=== PATIENT | female | born 2000 | race Hispanic/Latino ===

== ENCOUNTER 2020-05-11 14:13 | Inpatient (IN) | payer BC ==
[~2020-05-11] VITALS: Ht 160 cm; Wt 57.2 kg
[2020-05-11] MEDS ORDERED: SODIUM CHLORIDE 0.9% 1000ML 1,000 ML IV STA ×4 (14:54→18:16)
[2020-05-11] MEDS ORDERED: ACETAMINOPHEN 325 MG TAB PO NR (15:00)
[2020-05-11 15:26] LABS: HEMATOCRIT 28.5 % (34.2-44.1); HEMOGLOBIN 8.9 g/dL (12.0-16.0); LYMPHOCYTES % 42.1 % (18.0-39.1); MEAN CORPUSCULAR HEMOGLOBIN 25.4 pg (28-32); MEAN CORPUSCULAR HGB CONC 31.2 g/dL (31-35); MEAN CORPUSCULAR VOLUME 81.2 fL (81-99); MONOCYTES # (AUTO) 0.1 (0.2-0.8); MONOCYTES % 3.8 % (4.4-11.3); NEUTROPHILS # (AUTO) 1.3 (2.1-6.9); NEUTROPHILS % 53.7 % (38.7-80.0); PLATELET COUNT 81 x10e3/uL (140-360); RED BLOOD COUNT 3.51 x10e6/uL (3.6-5.1); RED CELL DISTRIBUTION WIDTH 16.2 % (11.7-14.4)
[2020-05-11 15:37] LABS: INR 1.38; PROTHROMBIN TIME 17.7 seconds (11.9-14.5)
[2020-05-11 15:38] LABS: PARTIAL THROMBOPLASTIN TIME 51.9 seconds (23.8-35.5)
[2020-05-11 15:48] LABS: ALANINE AMINOTRANSFERASE 55 IU/L (0-55); ALBUMIN 2.3 g/dL (3.5-5.0); ALBUMIN/GLOBULIN RATIO 0.5 (0.8-2.0); ALKALINE PHOSPHATASE 22 IU/L (40-150); ANION GAP 13.3 mmol/L (8-16); BLOOD UREA NITROGEN 39 mg/dL (7-26); BUN/CREATININE RATIO 24 (6-25); CALCIUM 7.1 mg/dL (8.4-10.2); CARBON DIOXIDE 19 mmol/L (22-29); CHLORIDE 102 mmol/L (98-107); EST GLOMERULAR FILTRATION RATE 41 ML/MIN (60-); GLUCOSE 95 mg/dL (74-118); MAGNESIUM 2.8 MG/DL (1.3-2.1); POTASSIUM 5.3 mmol/L (3.5-5.1); SODIUM 129 mmol/L (136-145)
[2020-05-11] MEDS ORDERED: VANCOMYCIN 1GM/NS 250 ML 250 ML IV ONE (16:00)
[2020-05-11] MEDS: CEFEPIME 2 GM/NS 0.9% 100 ML 100 ML IV SCH (16:49)
[2020-05-11 16:57] LABS: BILIRUBIN,URINE NEGATIVE (NEGATIVE); CLARITY,URINE SL CLOUDY (CLEAR); COLOR,URINE STRAW (YELLOW); KETONES,URINE NEGATIVE (NEGATIVE); LEUKOCYTE ESTERASE ,URINE NEGATIVE (NEGATIVE); NITRITE,URINE NEGATIVE (NEGATIVE); PROTEIN,URINE DIPSTICK >=300 (NEGATIVE); URINE UROBILINOGEN 0.2 mg/dL (0.2 - 1)
[2020-05-11 17:07] LABS: AMORPHOUS SEDIMENT,URINE MANY (FEW); BACTERIA,URINE MODERATE /HPF
[2020-05-11] MEDS ORDERED: ONDANSETRON HCL INJ 2MG/ML 2ML 2 MG/ML VIAL IV NR (17:30)
[2020-05-11 17:33] LABS: FREE THYROXINE INDEX 1.6914 (1.4-3.8); THYROID STIMULATING HORMONE 1.735 uIU/mL (0.350-4.940)
[2020-05-11 17:47] LABS: STREPTOCOCCUS GRP A ANTIGEN NEGATIVE (NEGATIVE)
[2020-05-11 17:56] LABS: INFLUENZAE A&B ANTIGEN (RAPID) NEGATIVE (NEGATIVE)
[2020-05-11] MEDS ORDERED: LIDOCAINE HCL 1% LOCAL INJ 20 ML VIAL INJ ONE (18:00)
[2020-05-11] MEDS ORDERED: SODIUM CHLORIDE 0.9% 1000ML 1,000 ML ONE (18:03)
[2020-05-11] MEDS: SODIUM CHLORIDE 0.9% 1000ML 1,000 ML IV SCH (18:33)
[2020-05-11] MEDS ORDERED: SODIUM CHLORIDE 0.9% 250ML 250 ML IV ONE (19:30)
[2020-05-11 19:54] LABS: ELLIPTOCYTE, RBC SLIGHT; TEAR DROP CELLS FEW
[2020-05-11 19:56] LABS: PLATELET MORPHOLOGY COMMENT RARE EDTA CLUMPING; POIKILOCYTOSIS SLIGHT; RBC MORPHOLOGY COMMENT ABNORMAL
[2020-05-11 19:57] LABS: PLATELET ESTIMATE SLIGHTLY DECREASED
[2020-05-11 20:30] VITALS: BP 98/59
[2020-05-11 21:00] VITALS: BP 84/58
[2020-05-11 21:11] LABS: FERRITIN 1805.57 ng/mL (4.63-204.00)
[2020-05-11 22:00] VITALS: BP 85/54
[2020-05-11] MEDS ORDERED: INFLUENZA VIRUS VAC SPLIT INJ 0.5 ML SYR IM SCH (22:06)
[2020-05-11] MEDS ORDERED: SODIUM CHLORIDE 0.9% 250ML 250 ML ONE (22:35)
[2020-05-11 22:44] LABS: CREATINE KINASE 1046 IU/L (29-168)
[2020-05-11 22:52] LABS: CREATINE KINASE MB < 1.00 ng/mL (0-4.3)
[2020-05-11 23:00] VITALS: BP 82/58
[2020-05-11 23:22] LABS: AMPHETAMINES SCREEN,URINE NEGATIVE (NEGATIVE); BENZODIAZEPINES SCREEN,URINE NEGATIVE (NEGATIVE); PHENCYCLIDINE SCREEN,URINE NEGATIVE (NEGATIVE)
[2020-05-11] MEDS: ONDANSETRON HCL INJ 2MG/ML 2ML 2 MG/ML VIAL IV PRN (23:26)
[2020-05-11 23:31] LABS: AMYLASE 220 U/L (25-125); LIPASE 271 U/L (8-78)
[2020-05-12] VITALS (24 sets, daily range): BP systolic 87–108; BP diastolic 55–79
[2020-05-12] MEDS ORDERED: METOPROLOL TARTRATE INJ 1 MG/ML VIAL IV PRN (00:15)
[2020-05-12 02:42] LABS: CREATINE KINASE MB 2.5 ng/mL (0-5.0)
[2020-05-12 02:48] LABS: HIV 1&2 AB SCREEN NON-REACTIVE (NONREACTIVE)
[2020-05-12] MEDS: SODIUM CHLORIDE 0.9% 1000ML 1,000 ML IV SCH ×2 (03:25→09:40)
[2020-05-12] MEDS ORDERED: DIATRIZOATE MEGL/DIATRIZOA SOD 30 ML BTL PO ONE (04:27)
[2020-05-12 05:40] LABS: HEMATOCRIT 28.7 % (34.2-44.1); HEMOGLOBIN 9.3 g/dL (12.0-16.0); LYMPHOCYTES # (AUTO) 0.5 (1.0-3.2); LYMPHOCYTES % 30.4 % (18.0-39.1); MEAN CORPUSCULAR HEMOGLOBIN 27.2 pg (28-32); MEAN CORPUSCULAR HGB CONC 32.4 g/dL (31-35); MEAN CORPUSCULAR VOLUME 83.9 fL (81-99); MONOCYTES # (AUTO) 0.1 (0.2-0.8); MONOCYTES % 4.1 % (4.4-11.3); NEUTROPHILS # (AUTO) 1.1 (2.1-6.9); NEUTROPHILS % 64.9 % (38.7-80.0); PLATELET COUNT 54 x10e3/uL (140-360); RED BLOOD COUNT 3.42 x10e6/uL (3.6-5.1); RED CELL DISTRIBUTION WIDTH 15.6 % (11.7-14.4)
[2020-05-12 06:14] LABS: ALANINE AMINOTRANSFERASE 44 IU/L (0-55); ALBUMIN 1.6 g/dL (3.5-5.0); ALBUMIN/GLOBULIN RATIO 0.4 (0.8-2.0); ALKALINE PHOSPHATASE 17 IU/L (40-150); ANION GAP 10.4 mmol/L (8-16); BLOOD UREA NITROGEN 29 mg/dL (7-26); BUN/CREATININE RATIO 32 (6-25); CARBON DIOXIDE 16 mmol/L (22-29); CHLORIDE 114 mmol/L (98-107); CREATININE, SERUM 0.92 mg/dL (0.57-1.11); EST GLOMERULAR FILTRATION RATE > 60 ML/MIN (60-); GLUCOSE 81 mg/dL (74-118); POTASSIUM 4.4 mmol/L (3.5-5.1); SODIUM 136 mmol/L (136-145)
[2020-05-12 06:18] LABS: CALCIUM 5.7 mg/dL (8.4-10.2)
[2020-05-12 07:05] LABS: BAND NEUTROPHILS % (MANUAL) 3 %; LYMPHOCYTES % (MANUAL) 31 % (19-48); MONOCYTES % (MANUAL) 5 % (3.4-9.0); NEUTROPHILS % (MANUAL) 61 % (40-74); SCHISTOCYTES FEW; TEAR DROP CELLS FEW
[2020-05-12 07:06] LABS: ANISOCYTOSIS MODERATE; POLYCHROMASIA FEW
[2020-05-12 07:07] LABS: ELLIPTOCYTE, RBC FEW; PLATELET ESTIMATE MODERATELY DECREASED; PLATELET MORPHOLOGY COMMENT FEW EDTA CLUMPING
[2020-05-12] MEDS: CEFEPIME 2 GM/NS 0.9% 100 ML 100 ML IV SCH ×2 (07:18→16:46)
[2020-05-12 07:57] LABS: CHOLESTEROL 50 MD/DL (0-199); MAGNESIUM 2.1 MG/DL (1.3-2.1); PHOSPHORUS 3.2 MG/DL (2.3-4.7); TRIGLYCERIDES 277 MG/DL (0-149)
[2020-05-12 07:59] LABS: HDL CHOLESTEROL < 5 MG/DL (40-60)
[2020-05-12] MEDS ORDERED: CALCIUM GLUCONATE 10% INJ 9.3 MEQ in SODIUM CHLORIDE 0.9% 100 ML 100 ML IV ONE (08:00)
[2020-05-12] MEDS: ONDANSETRON HCL INJ 2MG/ML 2ML 2 MG/ML VIAL IV PRN (08:40)
[2020-05-12 10:36] LABS: CREATINE KINASE MB 3.3 ng/mL (0-5.0)
[2020-05-12] MEDS ORDERED: LACTATED RINGER'S 1,000 ML INJ ONE (11:30)
[2020-05-12] MEDS: ACETAMINOPHEN 325 MG TAB PO PRN ×2 (11:50→19:50)
[2020-05-12 12:03] LABS: RBC MORPHOLOGY COMMENT ABNORMAL
[2020-05-12] MEDS ORDERED: FENTANYL CITRATE/PF 100MCG/2 ML INJ ONE (13:33)
[2020-05-12] MEDS ORDERED: MIDAZOLAM HCL 2 MG/2 ML VIAL ONE (13:33)
[2020-05-12] MEDS ORDERED: TRAMADOL HCL 50 MG TAB PO PRN (21:15)
[2020-05-12] MEDS: ACETAMINOPHEN/CODEINE 300MG - 30MG TAB PO PRN (21:34)
[2020-05-13] VITALS (10 sets, daily range): BP systolic 84–96; BP diastolic 47–65
[2020-05-13] MEDS ORDERED: METOCLOPRAMIDE HCL 10 MG/2ML VIAL IV STA (01:55)
[2020-05-13] MEDS: PANTOPRAZOLE 40 MG 10ML VIAL IV SCH ×3 (02:14→21:14)
[2020-05-13] MEDS: CEFEPIME 2 GM/NS 0.9% 100 ML 100 ML IV SCH ×3 (04:21→23:07)
[2020-05-13 05:08] LABS: HEMATOCRIT 30.9 % (34.2-44.1); HEMOGLOBIN 9.8 g/dL (12.0-16.0); LYMPHOCYTES # (AUTO) 0.5 (1.0-3.2); LYMPHOCYTES % 31.5 % (18.0-39.1); MEAN CORPUSCULAR HEMOGLOBIN 26.3 pg (28-32); MEAN CORPUSCULAR HGB CONC 31.7 g/dL (31-35); MEAN CORPUSCULAR VOLUME 83.1 fL (81-99); MONOCYTES # (AUTO) 0.1 (0.2-0.8); NEUTROPHILS # (AUTO) 0.9 (2.1-6.9); NEUTROPHILS % 60.8 % (38.7-80.0); RED BLOOD COUNT 3.72 x10e6/uL (3.6-5.1); RED CELL DISTRIBUTION WIDTH 16.3 % (11.7-14.4)
[2020-05-13] MEDS: METOCLOPRAMIDE HCL 10 MG/2ML VIAL IV SCH ×4 (05:46→23:07)
[2020-05-13 05:50] LABS: ALANINE AMINOTRANSFERASE 117 IU/L (0-55); ALBUMIN 1.7 g/dL (3.5-5.0); ALBUMIN/GLOBULIN RATIO 0.4 (0.8-2.0); ALKALINE PHOSPHATASE 25 IU/L (40-150); BLOOD UREA NITROGEN 20 mg/dL (7-26); BUN/CREATININE RATIO 24 (6-25); CARBON DIOXIDE 16 mmol/L (22-29); CHLORIDE 115 mmol/L (98-107); CREATININE, SERUM 0.84 mg/dL (0.57-1.11); EST GLOMERULAR FILTRATION RATE > 60 ML/MIN (60-); GLUCOSE 80 mg/dL (74-118); MAGNESIUM 2.3 MG/DL (1.3-2.1); PHOSPHORUS 3.7 MG/DL (2.3-4.7); SODIUM 137 mmol/L (136-145)
[2020-05-13 05:53] LABS: CALCIUM 6.8 mg/dL (8.4-10.2)
[2020-05-13 07:43] LABS: BAND NEUTROPHILS % (MANUAL) 1 %; LYMPHOCYTES % (MANUAL) 17 % (19-48); MONOCYTES % (MANUAL) 3 % (3.4-9.0); NEUTROPHILS % (MANUAL) 79 % (40-74)
[2020-05-13 07:44] LABS: ANISOCYTOSIS SLIGHT; ELLIPTOCYTE, RBC SLIGHT; TEAR DROP CELLS FEW
[2020-05-13 07:45] LABS: HELMET CELLS RARE
[2020-05-13 07:46] LABS: OVALOCYTES FEW; RBC MORPHOLOGY COMMENT ABNORMAL; SCHISTOCYTES RARE
[2020-05-13 07:53] LABS: PLATELET ESTIMATE MODERATELY DECREASED; PLATELET MORPHOLOGY COMMENT FEW EDTA CLUMPING
[2020-05-13 07:54] LABS: PLATELET COUNT 71 x10e3/uL (140-360)
[2020-05-13] MEDS ORDERED: FILGRASTIM 480 MCG SYR SQ ONE (09:45)
[2020-05-13] MEDS: HYDROCODONE/APAP 7.5MG-325MG 1 EA TAB PO PRN (10:25)
[2020-05-13] MEDS: IRON SUCROSE 100 MG in SODIUM CHLORIDE 0.9% 100 ML 100 ML IV SCH (10:45)
[2020-05-13] MEDS: DICYCLOMINE HCL 10 MG CAP PO SCH ×3 (10:47→21:14)
[2020-05-13 12:09] LABS: BILIRUBIN,URINE SMALL (NEGATIVE); CLARITY,URINE SL CLOUDY (CLEAR); COLOR,URINE YELLOW (YELLOW); KETONES,URINE TRACE (NEGATIVE); LEUKOCYTE ESTERASE ,URINE NEGATIVE (NEGATIVE); NITRITE,URINE NEGATIVE (NEGATIVE); PROTEIN,URINE DIPSTICK >=300 (NEGATIVE); URINE UROBILINOGEN 1 mg/dL (0.2 - 1)
[2020-05-13 12:21] LABS: WBC,URINE (MAN) 0-5 /HPF (0-5)
[2020-05-13 12:22] LABS: BACTERIA,URINE RARE /HPF; EPITHELIAL CELLS,URINE RARE /LPF; HYALINE CASTS 0-1 (0-1); MUCUS,URINE RARE (RARE)
[2020-05-13] MEDS: SODIUM BICARBONATE 8.4% SYRING 150 ML in DEXTROSE 5% 1,000 ML IV SCH (13:15)
[2020-05-13] MEDS: ACETAMINOPHEN/CODEINE 300MG - 30MG TAB PO PRN (19:13)
[2020-05-14] VITALS (8 sets, daily range): BP systolic 93–102; BP diastolic 50–65
[2020-05-14 02:27] LABS: CREATININE,URINE RANDOM 105.12 mg/dL (47-110)
[2020-05-14] MEDS: ACETAMINOPHEN/CODEINE 300MG - 30MG TAB PO PRN ×2 (02:32→17:33)
[2020-05-14 02:51] LABS: TOTAL PROTEIN 24HR, URINE 3232.5 mg/24hr (50-100)
[2020-05-14] MEDS: METOCLOPRAMIDE HCL 10 MG/2ML VIAL IV SCH ×3 (05:17→17:33)
[2020-05-14 06:16] LABS: BASOPHILS % 0.1 % (0.0-1.0); HEMATOCRIT 29.2 % (34.2-44.1); HEMOGLOBIN 9.3 g/dL (12.0-16.0); LYMPHOCYTES # (AUTO) 0.9 (1.0-3.2); LYMPHOCYTES % 13.2 % (18.0-39.1); MEAN CORPUSCULAR HEMOGLOBIN 26.5 pg (28-32); MEAN CORPUSCULAR HGB CONC 31.8 g/dL (31-35); MEAN CORPUSCULAR VOLUME 83.2 fL (81-99); MONOCYTES # (AUTO) 0.1 (0.2-0.8); MONOCYTES % 1.5 % (4.4-11.3); NEUTROPHILS # (AUTO) 5.7 (2.1-6.9); PLATELET COUNT 51 x10e3/uL (140-360); RED BLOOD COUNT 3.51 x10e6/uL (3.6-5.1); RED CELL DISTRIBUTION WIDTH 17.1 % (11.7-14.4)
[2020-05-14 06:58] LABS: ANION GAP 8.5 mmol/L (8-16); BLOOD UREA NITROGEN 15 mg/dL (7-26); BUN/CREATININE RATIO 18 (6-25); CARBON DIOXIDE 21 mmol/L (22-29); CHLORIDE 111 mmol/L (98-107); CREATININE, SERUM 0.82 mg/dL (0.57-1.11); EST GLOMERULAR FILTRATION RATE > 60 ML/MIN (60-); GLUCOSE 82 mg/dL (74-118); POTASSIUM 4.5 mmol/L (3.5-5.1); SODIUM 136 mmol/L (136-145)
[2020-05-14 07:03] LABS: CALCIUM 6.8 mg/dL (8.4-10.2)
[2020-05-14] MEDS: DICYCLOMINE HCL 10 MG CAP PO SCH ×3 (08:24→21:08)
[2020-05-14] MEDS: SODIUM BICARBONATE 8.4% SYRING 150 ML in DEXTROSE 5% 1,000 ML IV SCH (08:24)
[2020-05-14] MEDS: PANTOPRAZOLE 40 MG 10ML VIAL IV SCH ×2 (08:24→21:08)
[2020-05-14] MEDS: CEFEPIME 2 GM/NS 0.9% 100 ML 100 ML IV SCH ×2 (08:24→17:10)
[2020-05-14] MEDS: IRON SUCROSE 100 MG in SODIUM CHLORIDE 0.9% 100 ML 100 ML IV SCH (08:24)
[2020-05-14 08:31] LABS: PLATELET ESTIMATE MARKEDLY DECREASED; PLATELET MORPHOLOGY COMMENT FEW EDTA CLUMPING
[2020-05-14] MEDS: HYDROCODONE/APAP 7.5MG-325MG 1 EA TAB PO PRN (08:33)
[2020-05-14] MEDS ORDERED: METHYLPREDNISOLONE SOD SUCC 125 MG/2ML VIAL IV ONE (17:30)
[2020-05-15] VITALS (8 sets, daily range): BP systolic 99–120; BP diastolic 60–84
[2020-05-15] MEDS: METHYLPREDNISOLONE SOD SUCC 125 MG/2ML VIAL IV SCH ×4 (01:00→23:45)
[2020-05-15] MEDS: METOCLOPRAMIDE HCL 10 MG/2ML VIAL IV SCH ×5 (06:33→23:45)
[2020-05-15] MEDS: SODIUM BICARBONATE 8.4% SYRING 150 ML in DEXTROSE 5% 1,000 ML IV SCH ×2 (10:59→20:18)
[2020-05-15] MEDS: DICYCLOMINE HCL 10 MG CAP PO SCH ×3 (11:00→20:18)
[2020-05-15] MEDS: CEFEPIME 2 GM/NS 0.9% 100 ML 100 ML IV SCH ×4 (11:00→20:18)
[2020-05-15] MEDS: IRON SUCROSE 100 MG in SODIUM CHLORIDE 0.9% 100 ML 100 ML IV SCH (11:00)
[2020-05-15] MEDS: PANTOPRAZOLE 40 MG 10ML VIAL IV SCH ×2 (11:00→20:18)
[2020-05-15] MEDS ORDERED: GADOBENATE DIMEGLUMINE 1 ML IV ONE (11:53)
[2020-05-15] MEDS ORDERED: CALCIUM GLUCONATE 10% INJ 9.3 MEQ in SODIUM CHLORIDE 0.9% 100 ML 100 ML IV ONE (12:30)
[2020-05-15] MEDS: HYDROCODONE/APAP 7.5MG-325MG 1 EA TAB PO PRN (23:45)
[2020-05-15] MEDS ORDERED: LACTATED RINGER'S 1,000 ML ONE (23:59)
[2020-05-16] VITALS (9 sets, daily range): BP systolic 108–125; BP diastolic 75–88
[2020-05-16] MEDS ORDERED: CITRATE OF MAGNESIA 300ML BOTTLE PO ONE (01:15)
[2020-05-16] MEDS ORDERED: ONDANSETRON HCL INJ 2MG/ML 2ML 2 MG/ML VIAL IV ONE (01:15)
[2020-05-16] MEDS ORDERED: ONDANSETRON HCL INJ 2MG/ML 2ML 2 MG/ML VIAL IV PRN (02:00)
[2020-05-16] MEDS: METOCLOPRAMIDE HCL 10 MG/2ML VIAL IV SCH ×5 (02:00→20:18)
[2020-05-16 02:37] LABS: BASOPHILS % 0.2 % (0.0-1.0); HEMOGLOBIN 9.2 g/dL (12.0-16.0); LYMPHOCYTES % 16.6 % (18.0-39.1); MEAN CORPUSCULAR HEMOGLOBIN 26.4 pg (28-32); MEAN CORPUSCULAR HGB CONC 31.7 g/dL (31-35); MEAN CORPUSCULAR VOLUME 83.3 fL (81-99); MONOCYTES # (AUTO) 0.3 (0.2-0.8); MONOCYTES % 5.5 % (4.4-11.3); NEUTROPHILS # (AUTO) 4.7 (2.1-6.9); NEUTROPHILS % 76.3 % (38.7-80.0); RED BLOOD COUNT 3.48 x10e6/uL (3.6-5.1); RED CELL DISTRIBUTION WIDTH 17.2 % (11.7-14.4)
[2020-05-16 02:48] LABS: CALCIUM IONIZED 1.2 mmol/L (1.09-1.30)
[2020-05-16 02:50] LABS: PLATELET COUNT 48 x10e3/uL (140-360)
[2020-05-16 02:52] LABS: PHOSPHORUS 2.9 MG/DL (2.3-4.7)
[2020-05-16 02:54] LABS: ALANINE AMINOTRANSFERASE 269 IU/L (0-55); ALBUMIN 1.4 g/dL (3.5-5.0); ALBUMIN/GLOBULIN RATIO 0.4 (0.8-2.0); ALKALINE PHOSPHATASE 60 IU/L (40-150); ANION GAP 8.2 mmol/L (8-16); BLOOD UREA NITROGEN 22 mg/dL (7-26); BUN/CREATININE RATIO 36 (6-25); CALCIUM 7.1 mg/dL (8.4-10.2); CARBON DIOXIDE 28 mmol/L (22-29); CHLORIDE 104 mmol/L (98-107); CREATININE, SERUM 0.61 mg/dL (0.57-1.11); EST GLOMERULAR FILTRATION RATE > 60 ML/MIN (60-); GLUCOSE 161 mg/dL (74-118); POTASSIUM 4.2 mmol/L (3.5-5.1); SODIUM 136 mmol/L (136-145)
[2020-05-16] MEDS ORDERED: HYOSCYAMINE 0.125 MG TAB PO ONE (03:30)
[2020-05-16] MEDS ORDERED: HYOSCYAMINE 0.125 MG TAB PO PRN (03:30)
[2020-05-16 04:25] LABS: AMYLASE 134 U/L (25-125); LIPASE 206 U/L (8-78)
[2020-05-16] MEDS: SODIUM BICARBONATE 8.4% SYRING 150 ML in DEXTROSE 5% 1,000 ML IV SCH ×2 (04:49→21:04)
[2020-05-16] MEDS ORDERED: CHLORDIAZEPOXIDE/CLIDINIUM 1 CAP PO STA (05:31)
[2020-05-16] MEDS ORDERED: BISACODYL 10 MG SUPP PR PRN (05:45)
[2020-05-16 05:54] LABS: CLARITY,URINE SL CLOUDY (CLEAR); COLOR,URINE YELLOW (YELLOW); LEUKOCYTE ESTERASE ,URINE NEGATIVE (NEGATIVE); NITRITE,URINE NEGATIVE (NEGATIVE)
[2020-05-16 05:55] LABS: BILIRUBIN,URINE SMALL (NEGATIVE); KETONES,URINE NEGATIVE (NEGATIVE); PROTEIN,URINE DIPSTICK >=300 (NEGATIVE); URINE UROBILINOGEN 1 mg/dL (0.2 - 1)
[2020-05-16 06:37] LABS: BACTERIA,URINE RARE /HPF; EPITHELIAL CELLS,URINE FEW /LPF; WBC,URINE (MAN) 21-50 /HPF (0-5)
[2020-05-16] MEDS: DICYCLOMINE HCL 10 MG CAP PO SCH ×3 (08:06→23:00)
[2020-05-16] MEDS: PANTOPRAZOLE 40 MG 10ML VIAL IV SCH ×2 (08:06→20:18)
[2020-05-16] MEDS: IRON SUCROSE 100 MG in SODIUM CHLORIDE 0.9% 100 ML 100 ML IV SCH (08:06)
[2020-05-16] MEDS: METHYLPREDNISOLONE SOD SUCC 125 MG/2ML VIAL IV SCH ×3 (08:06→23:47)
[2020-05-16] MEDS: ONDANSETRON HCL INJ 2MG/ML 2ML 2 MG/ML VIAL IV SCH ×3 (08:06→16:34)
[2020-05-16] MEDS: CEFEPIME 2 GM/NS 0.9% 100 ML 100 ML IV SCH ×3 (08:06→23:00)
[2020-05-16] MEDS: CHLORDIAZEPOXIDE/CLIDINIUM 1 CAP PO SCH ×3 (10:32→23:00)
[2020-05-16 11:51] LABS: ALANINE AMINOTRANSFERASE 239 IU/L (0-55); ALBUMIN 1.6 g/dL (3.5-5.0); ALBUMIN/GLOBULIN RATIO 0.4 (0.8-2.0); ALKALINE PHOSPHATASE 65 IU/L (40-150); ANION GAP 8.9 mmol/L (8-16); BLOOD UREA NITROGEN 25 mg/dL (7-26); BUN/CREATININE RATIO 37 (6-25); CALCIUM 7.1 mg/dL (8.4-10.2); CARBON DIOXIDE 28 mmol/L (22-29); CHLORIDE 103 mmol/L (98-107); CREATININE, SERUM 0.67 mg/dL (0.57-1.11); EST GLOMERULAR FILTRATION RATE > 60 ML/MIN (60-); GLUCOSE 200 mg/dL (74-118); POTASSIUM 3.9 mmol/L (3.5-5.1); SODIUM 136 mmol/L (136-145)
[2020-05-16 12:10] LABS: BASOPHILS % 0.2 % (0.0-1.0); HEMATOCRIT 33.2 % (34.2-44.1); HEMOGLOBIN 10.6 g/dL (12.0-16.0); LYMPHOCYTES # (AUTO) 0.9 (1.0-3.2); LYMPHOCYTES % 9.9 % (18.0-39.1); MEAN CORPUSCULAR HEMOGLOBIN 26.2 pg (28-32); MEAN CORPUSCULAR HGB CONC 31.9 g/dL (31-35); MEAN CORPUSCULAR VOLUME 82.2 fL (81-99); MONOCYTES # (AUTO) 0.6 (0.2-0.8); MONOCYTES % 6.4 % (4.4-11.3); NEUTROPHILS # (AUTO) 7.1 (2.1-6.9); NEUTROPHILS % 82.7 % (38.7-80.0); PLATELET COUNT 65 x10e3/uL (140-360); RED BLOOD COUNT 4.04 x10e6/uL (3.6-5.1); RED CELL DISTRIBUTION WIDTH 17.1 % (11.7-14.4)
[2020-05-16] MEDS: HYDROCODONE/APAP 7.5MG-325MG 1 EA TAB PO PRN (13:09)
[2020-05-16] MEDS ORDERED: CALCIUM GLUCONATE 10% INJ 13.95 MEQ in SODIUM CHLORIDE 0.9% 100 ML 100 ML IV ONE (17:00)
[2020-05-16] MEDS: ONDANSETRON HCL INJ 2MG/ML 2ML 2 MG/ML VIAL IV PRN (20:18)
[2020-05-16] MEDS ORDERED: LACTATED RINGER'S 1,000 ML ONE (23:47)
[2020-05-17] VITALS (7 sets, daily range): BP systolic 117–136; BP diastolic 77–98
[2020-05-17] MEDS: HYDROCODONE/APAP 7.5MG-325MG 1 EA TAB PO PRN (01:37)
[2020-05-17] MEDS: ONDANSETRON HCL INJ 2MG/ML 2ML 2 MG/ML VIAL IV PRN (01:37)
[2020-05-17] MEDS ORDERED: ZIPRASIDONE 20 MG VIAL IM PRN (02:30)
[2020-05-17] MEDS: ZIPRASIDONE 20 MG VIAL IM STA ×2 (02:31→02:44)
[2020-05-17] MEDS: PIPER-TAZ 3.375 GM 50 ML IV SCH ×4 (02:31→21:11)
[2020-05-17] MEDS ORDERED: DIAZEPAM INJ 5 MG/ML 2 ML IV ONE (02:45)
[2020-05-17] MEDS ORDERED: DONNATAL/LIDOCAINE/MAALOX 30 ML SUSP PO ONE (03:15)
[2020-05-17] MEDS ORDERED: MAGNESIUM/ALUMINUM/SIMETHICONE 30 ML UDC PO ONE (03:30)
[2020-05-17] MEDS ORDERED: LIDOCAINE VISC 2% SOLN 15 ML UDC PO ONE (03:30)
[2020-05-17] MEDS ORDERED: BELLADONNA ALK/PHENOBARBITAL 5 ML UDC PO ONE (03:30)
[2020-05-17] MEDS: DIPHENHYDRAMINE HCL INJ 50 MG/ML VIAL IV PRN (04:17)
[2020-05-17] MEDS ORDERED: LACTATED RINGER'S 1,000 ML INJ ONE (04:30)
[2020-05-17] MEDS ORDERED: LACTATED RINGER'S 1,000 ML ONE (04:36)
[2020-05-17 05:23] LABS: BASOPHILS % 0.1 % (0.0-1.0); HEMATOCRIT 36.5 % (34.2-44.1); HEMOGLOBIN 11.7 g/dL (12.0-16.0); LYMPHOCYTES # (AUTO) 0.9 (1.0-3.2); LYMPHOCYTES % 9.3 % (18.0-39.1); MEAN CORPUSCULAR HEMOGLOBIN 26.5 pg (28-32); MEAN CORPUSCULAR HGB CONC 32.1 g/dL (31-35); MEAN CORPUSCULAR VOLUME 82.8 fL (81-99); MONOCYTES # (AUTO) 0.5 (0.2-0.8); MONOCYTES % 5.1 % (4.4-11.3); NEUTROPHILS # (AUTO) 7.7 (2.1-6.9); NEUTROPHILS % 84.6 % (38.7-80.0); PLATELET COUNT 66 x10e3/uL (140-360); RED BLOOD COUNT 4.41 x10e6/uL (3.6-5.1); RED CELL DISTRIBUTION WIDTH 16.9 % (11.7-14.4)
[2020-05-17 05:27] LABS: INR 2.29; PROTHROMBIN TIME 26.3 seconds (11.9-14.5)
[2020-05-17 05:28] LABS: PARTIAL THROMBOPLASTIN TIME 41.3 seconds (23.8-35.5)
[2020-05-17 05:36] LABS: ALANINE AMINOTRANSFERASE 140 IU/L (0-55); ALBUMIN 1.5 g/dL (3.5-5.0); ALBUMIN/GLOBULIN RATIO 0.5 (0.8-2.0); ALKALINE PHOSPHATASE 53 IU/L (40-150); ANION GAP 11.1 mmol/L (8-16); BLOOD UREA NITROGEN 34 mg/dL (7-26); BUN/CREATININE RATIO 38 (6-25); CARBON DIOXIDE 28 mmol/L (22-29); CHLORIDE 102 mmol/L (98-107); CREATININE, SERUM 0.89 mg/dL (0.57-1.11); EST GLOMERULAR FILTRATION RATE > 60 ML/MIN (60-); GLUCOSE 176 mg/dL (74-118); POTASSIUM 4.1 mmol/L (3.5-5.1); SODIUM 137 mmol/L (136-145)
[2020-05-17 05:45] LABS: CALCIUM 6.8 mg/dL (8.4-10.2)
[2020-05-17 06:07] LABS: AMYLASE 909 U/L (25-125)
[2020-05-17 06:35] LABS: LIPASE 1802 U/L (8-78)
[2020-05-17] MEDS: ONDANSETRON HCL INJ 2MG/ML 2ML 2 MG/ML VIAL IV SCH ×3 (07:30→16:26)
[2020-05-17] MEDS: DICYCLOMINE HCL 10 MG CAP PO SCH ×3 (09:00→21:11)
[2020-05-17] MEDS: PANTOPRAZOLE 40 MG 10ML VIAL IV SCH ×2 (09:00→21:11)
[2020-05-17] MEDS: METHYLPREDNISOLONE SOD SUCC 125 MG/2ML VIAL IV SCH ×2 (09:00→16:26)
[2020-05-17] MEDS: IRON SUCROSE 100 MG in SODIUM CHLORIDE 0.9% 100 ML 100 ML IV SCH (09:00)
[2020-05-17] MEDS: CHLORDIAZEPOXIDE/CLIDINIUM 1 CAP PO SCH ×3 (09:00→21:11)
[2020-05-17 09:02] LABS: BAND NEUTROPHILS % (MANUAL) 1 %; LYMPHOCYTES % (MANUAL) 10 % (19-48); MONOCYTES % (MANUAL) 5 % (3.4-9.0); NEUTROPHILS % (MANUAL) 84 % (40-74)
[2020-05-17 09:08] LABS: PLATELET ESTIMATE MODERATELY DECREASED; PLATELET MORPHOLOGY COMMENT NORMAL; RBC MORPHOLOGY COMMENT NORMAL
[2020-05-17] MEDS ORDERED: DEXTROSE 5%/0.45% SOD CHL 1,000 ML IV SCH (10:00)
[2020-05-17] MEDS ORDERED: SODIUM CHLORIDE 0.9% 50ML 50 ML ONE (12:08)
[2020-05-17] MEDS ORDERED: GADOBENATE DIMEGLUMINE 1 ML IV ONE (12:08)
[2020-05-17 15:12] LABS: INR 1.89; PROTHROMBIN TIME 22.6 seconds (11.9-14.5)
[2020-05-17] MEDS ORDERED: CALCIUM GLUCONATE 10% INJ 13.95 MEQ in SODIUM CHLORIDE 0.9% 100 ML 100 ML IV ONE (20:00)
[2020-05-17] MEDS ORDERED: ALBUMIN 25% 25GM 100ML 0.25 GM/ML BTL IV ONE (21:15)
[2020-05-17] MEDS: LACTATED RINGER'S 1,000 ML INJ SCH (21:47)
[2020-05-18] VITALS (8 sets, daily range): BP systolic 109–131; BP diastolic 83–96
[2020-05-18] MEDS: METHYLPREDNISOLONE SOD SUCC 125 MG/2ML VIAL IV SCH ×3 (00:56→17:18)
[2020-05-18] MEDS: PIPER-TAZ 3.375 GM 50 ML IV SCH ×4 (02:49→21:26)
[2020-05-18 06:48] LABS: BASOPHILS % 0.2 % (0.0-1.0); HEMATOCRIT 30.3 % (34.2-44.1); HEMOGLOBIN 9.6 g/dL (12.0-16.0); LYMPHOCYTES # (AUTO) 0.8 (1.0-3.2); LYMPHOCYTES % 9.1 % (18.0-39.1); MEAN CORPUSCULAR HEMOGLOBIN 26.4 pg (28-32); MEAN CORPUSCULAR HGB CONC 31.7 g/dL (31-35); MEAN CORPUSCULAR VOLUME 83.2 fL (81-99); MONOCYTES # (AUTO) 0.3 (0.2-0.8); MONOCYTES % 3.9 % (4.4-11.3); NEUTROPHILS # (AUTO) 7.3 (2.1-6.9); NEUTROPHILS % 85.6 % (38.7-80.0); PLATELET COUNT 90 x10e3/uL (140-360); RED BLOOD COUNT 3.64 x10e6/uL (3.6-5.1); RED CELL DISTRIBUTION WIDTH 16.6 % (11.7-14.4)
[2020-05-18 07:02] LABS: ALANINE AMINOTRANSFERASE 108 IU/L (0-55); ALBUMIN 1.7 g/dL (3.5-5.0); ALBUMIN/GLOBULIN RATIO 0.5 (0.8-2.0); ALKALINE PHOSPHATASE 54 IU/L (40-150); ANION GAP 11.5 mmol/L (8-16); BLOOD UREA NITROGEN 31 mg/dL (7-26); BUN/CREATININE RATIO 36 (6-25); CARBON DIOXIDE 29 mmol/L (22-29); CHLORIDE 102 mmol/L (98-107); CREATININE, SERUM 0.87 mg/dL (0.57-1.11); EST GLOMERULAR FILTRATION RATE > 60 ML/MIN (60-); GLUCOSE 112 mg/dL (74-118); MAGNESIUM 2.2 MG/DL (1.3-2.1); PHOSPHORUS 2.5 MG/DL (2.3-4.7); POTASSIUM 3.5 mmol/L (3.5-5.1); SODIUM 139 mmol/L (136-145)
[2020-05-18 07:05] LABS: CALCIUM 6.3 mg/dL (8.4-10.2)
[2020-05-18 07:10] LABS: LYMPHOCYTES % (MANUAL) 5 % (19-48); MONOCYTES % (MANUAL) 1 % (3.4-9.0); MYELOCYTES % (MANUAL) 1 % (0-0); NEUTROPHILS % (MANUAL) 93 % (40-74)
[2020-05-18 07:11] LABS: ELLIPTOCYTE, RBC SLIGHT; OVALOCYTES FEW; TEAR DROP CELLS FEW
[2020-05-18 07:12] LABS: PLATELET ESTIMATE MODERATELY DECREASED; PLATELET MORPHOLOGY COMMENT RARE EDTA CLUMPING; RBC MORPHOLOGY COMMENT ABNORMAL
[2020-05-18 07:51] LABS: INR 2.55; PROTHROMBIN TIME 28.6 seconds (11.9-14.5)
[2020-05-18] MEDS: LACTATED RINGER'S 1,000 ML INJ SCH (08:14)
[2020-05-18] MEDS: ONDANSETRON HCL INJ 2MG/ML 2ML 2 MG/ML VIAL IV SCH ×3 (09:21→17:18)
[2020-05-18] MEDS: PANTOPRAZOLE 40 MG 10ML VIAL IV SCH ×2 (09:21→21:26)
[2020-05-18] MEDS: IRON SUCROSE 100 MG in SODIUM CHLORIDE 0.9% 100 ML 100 ML IV SCH (09:21)
[2020-05-18] MEDS: CHLORDIAZEPOXIDE/CLIDINIUM 1 CAP PO SCH ×3 (09:22→21:26)
[2020-05-18] MEDS: DICYCLOMINE HCL 10 MG CAP PO SCH ×3 (09:22→21:26)
[2020-05-18] MEDS ORDERED: PHYTONADIONE 10 MG/ML AMP SQ ONE (09:30)
[2020-05-18] MEDS ORDERED: LACTATED RINGER'S 1,000 ML INJ SCH (14:00)
[2020-05-18 16:10] LABS: ALPHA 2 GLOBULIN URINE PEP 9.1 % (.)
[2020-05-18] MEDS ORDERED: CENTRAL TPN FORMULA 1 BAG IV SCH (20:00)
[2020-05-18] MEDS: DIPHENHYDRAMINE HCL INJ 50 MG/ML VIAL IV PRN (21:57)
[2020-05-19] VITALS (9 sets, daily range): BP systolic 77–135; BP diastolic 51–104
[2020-05-19] MEDS ORDERED: NOREPINEPHRINE INJ 4MG/4ML 8 MG in DEXTROSE 5% 250ML 250 ML IV PRN ×2
[2020-05-19] MEDS: METHYLPREDNISOLONE SOD SUCC 125 MG/2ML VIAL IV SCH ×3 (01:30→16:22)
[2020-05-19] MEDS: PIPER-TAZ 3.375 GM 50 ML IV SCH ×4 (03:35→21:17)
[2020-05-19] MEDS: ACETAMINOPHEN/CODEINE 300MG - 30MG TAB PO PRN ×2 (06:15→21:12)
[2020-05-19 06:18] LABS: ALANINE AMINOTRANSFERASE 99 IU/L (0-55); ALBUMIN 1.6 g/dL (3.5-5.0); ALBUMIN/GLOBULIN RATIO 0.5 (0.8-2.0); ALKALINE PHOSPHATASE 49 IU/L (40-150); ANION GAP 9.6 mmol/L (8-16); BLOOD UREA NITROGEN 30 mg/dL (7-26); BUN/CREATININE RATIO 36 (6-25); CARBON DIOXIDE 28 mmol/L (22-29); CHLORIDE 105 mmol/L (98-107); CREATININE, SERUM 0.84 mg/dL (0.57-1.11); EST GLOMERULAR FILTRATION RATE > 60 ML/MIN (60-); GLUCOSE 145 mg/dL (74-118); POTASSIUM 3.6 mmol/L (3.5-5.1); SODIUM 139 mmol/L (136-145)
[2020-05-19 06:26] LABS: CALCIUM 5.7 mg/dL (8.4-10.2)
[2020-05-19 06:38] LABS: BASOPHILS % 0.2 % (0.0-1.0); HEMATOCRIT 26.3 % (34.2-44.1); HEMOGLOBIN 8.2 g/dL (12.0-16.0); LYMPHOCYTES # (AUTO) 0.6 (1.0-3.2); LYMPHOCYTES % 9.5 % (18.0-39.1); MEAN CORPUSCULAR HEMOGLOBIN 26.5 pg (28-32); MEAN CORPUSCULAR HGB CONC 31.2 g/dL (31-35); MEAN CORPUSCULAR VOLUME 85.1 fL (81-99); MONOCYTES # (AUTO) 0.2 (0.2-0.8); MONOCYTES % 2.6 % (4.4-11.3); NEUTROPHILS # (AUTO) 5.3 (2.1-6.9); NEUTROPHILS % 86.2 % (38.7-80.0); PLATELET COUNT 84 x10e3/uL (140-360); RED BLOOD COUNT 3.09 x10e6/uL (3.6-5.1); RED CELL DISTRIBUTION WIDTH 16.7 % (11.7-14.4)
[2020-05-19 07:13] LABS: BAND NEUTROPHILS % (MANUAL) 8 %; LYMPHOCYTES % (MANUAL) 5 % (19-48); MONOCYTES % (MANUAL) 1 % (3.4-9.0); NEUTROPHILS % (MANUAL) 86 % (40-74)
[2020-05-19 07:14] LABS: ELLIPTOCYTE, RBC FEW; RBC MORPHOLOGY COMMENT ABNORMAL; SCHISTOCYTES FEW
[2020-05-19 07:15] LABS: ANISOCYTOSIS FEW; PLATELET MORPHOLOGY COMMENT FEW EDTA CLUMPING
[2020-05-19 07:17] LABS: PLATELET ESTIMATE MODERATELY DECREASED
[2020-05-19] MEDS: IRON SUCROSE 100 MG in SODIUM CHLORIDE 0.9% 100 ML 100 ML IV SCH (07:57)
[2020-05-19] MEDS: PANTOPRAZOLE 40 MG 10ML VIAL IV SCH ×2 (07:57→21:17)
[2020-05-19] MEDS: DIPHENHYDRAMINE HCL INJ 50 MG/ML VIAL IV PRN (07:57)
[2020-05-19] MEDS: ONDANSETRON HCL INJ 2MG/ML 2ML 2 MG/ML VIAL IV SCH ×3 (07:57→16:22)
[2020-05-19] MEDS: DICYCLOMINE HCL 10 MG CAP PO SCH ×3 (07:58→21:17)
[2020-05-19] MEDS: CHLORDIAZEPOXIDE/CLIDINIUM 1 CAP PO SCH ×3 (07:58→21:17)
[2020-05-19] MEDS: HYDROCODONE/APAP 7.5MG-325MG 1 EA TAB PO PRN (07:58)
[2020-05-19 09:09] LABS: INR 1.28; PROTHROMBIN TIME 16.6 seconds (11.9-14.5)
[2020-05-19] MEDS ORDERED: CALCIUM GLUCONATE 10% INJ 4.65 MEQ in SODIUM CHLORIDE 0.9% 50ML 50 ML IV ONE (10:00)
[2020-05-19] MEDS ORDERED: IOPAMIDOL 200 MG/ML 20 ML VIAL IT ONE (10:48)
[2020-05-19] MEDS ORDERED: IOPAMIDOL 300 MG/ML 15ML VIAL IT ONE (10:49)
[2020-05-19] MEDS ORDERED: LIDOCAINE HCL 1% LOCAL INJ 20 ML VIAL ONE (11:45)
[2020-05-19 14:16] LABS: TOTAL PROTEIN,CSF 26.8 mg/dL (15-40)
[2020-05-19 14:20] LABS: APPEARANCE,CSF CLEAR (CLEAR); COLOR,CSF COLORLESS (COLORLESS); TUBE NUMBER 3; WHITE BLOOD CELL,CSF 2 cells/uL (0-5)
[2020-05-19] MEDS: ACETAMINOPHEN 325 MG TAB PO PRN (15:17)
[2020-05-19] MEDS ORDERED: SODIUM CHLORIDE 0.9% 1000ML 1,000 ML IV ONE (16:00)
[2020-05-19] MEDS ORDERED: ALBUMIN 25% 25GM 100ML 0.25 GM/ML BTL IV ONE (16:00)
[2020-05-19] MEDS ORDERED: ALBUMIN 25% 25GM 100ML 100 ML IV ONE (16:15)
[2020-05-19] MEDS: VANCOMYCIN 1GM/NS 250 ML 250 ML IV SCH (16:22)
[2020-05-19] MEDS ORDERED: ACETAMINOPHEN 1000 MG/100 ML IV STA (17:34)
[2020-05-19] MEDS: CLINDAMYCIN PHOS 900MG/ 50ML 50 ML IV SCH (17:54)
[2020-05-19] MEDS ORDERED: SODIUM CHLORIDE 0.9% 1000ML 1,640 ML IV STA (19:13)
[2020-05-19] MEDS ORDERED: SODIUM CHLORIDE 0.9% 1000ML 1,640 ML IV ONE (19:15)
[2020-05-19] MEDS ORDERED: CENTRAL TPN FORMULA 1 BAG IV SCH (20:00)
[2020-05-19] MEDS ORDERED: SODIUM CHLORIDE 0.9% 1000ML 1,000 ML IV SCH (20:00)
[2020-05-19] MEDS ORDERED: NOREPINEPHRINE 8 MG/D5W 250 ML 250 ML ONE (22:22)
[2020-05-20] VITALS (13 sets, daily range): BP systolic 54–104; BP diastolic 29–79
[2020-05-20] MEDS ORDERED: SODIUM CHLORIDE 0.9% 1000ML 500 ML IV ONE (00:45)
[2020-05-20] MEDS ORDERED: ACETAMINOPHEN 1000 MG/100 ML IV PRN (00:45)
[2020-05-20] MEDS ORDERED: SODIUM CHLORIDE 0.9% 500ML 500 ML ONE (00:49)
[2020-05-20 00:55] LABS: BASOPHILS % 0.4 % (0.0-1.0); EOSINOPHILS # (AUTO) 0.1 (0.0-0.4); EOSINOPHILS % 2.6 % (0.0-6.0); HEMATOCRIT 35.5 % (34.2-44.1); LYMPHOCYTES # (AUTO) 0.5 (1.0-3.2); LYMPHOCYTES % 19.4 % (18.0-39.1); MEAN CORPUSCULAR HEMOGLOBIN 26.9 pg (28-32); MEAN CORPUSCULAR VOLUME 86.8 fL (81-99); MONOCYTES # (AUTO) 0.1 (0.2-0.8); MONOCYTES % 1.8 % (4.4-11.3); NEUTROPHILS % 73.6 % (38.7-80.0); PLATELET COUNT 134 x10e3/uL (140-360); RED BLOOD COUNT 4.09 x10e6/uL (3.6-5.1)
[2020-05-20 01:15] LABS: ALBUMIN/GLOBULIN RATIO 0.4 (0.8-2.0); ANION GAP 21.7 mmol/L (8-16); CREATININE, SERUM 1.27 mg/dL (0.57-1.11); POTASSIUM 3.7 mmol/L (3.5-5.1)
[2020-05-20 01:16] LABS: CALCIUM 5.1 mg/dL (8.4-10.2)
[2020-05-20] MEDS ORDERED: ACETAMINOPHEN 1000 MG/100 ML 100 ML IV ONE (01:16)
[2020-05-20] MEDS: METHYLPREDNISOLONE SOD SUCC 125 MG/2ML VIAL IV SCH (01:49)
[2020-05-20] MEDS: CLINDAMYCIN PHOS 900MG/ 50ML 50 ML IV SCH ×2 (02:30→07:21)
[2020-05-20] MEDS ORDERED: NOREPINEPHRINE 8 MG/D5W 250 ML 250 ML ONE (03:51)
[2020-05-20] MEDS: PIPER-TAZ 3.375 GM 50 ML IV SCH ×2 (04:00→09:32)
[2020-05-20] MEDS ORDERED: SODIUM BICARBONATE 8.4% INJ 50 ML SYR IV STA (04:14)
[2020-05-20] MEDS ORDERED: SODIUM BICARBONATE 8.4% SYRING 100 ML ONE (04:19)
[2020-05-20] MEDS ORDERED: FENTANYL 2000MCG/NS 250 250 ML ONE (04:42)
[2020-05-20] MEDS ORDERED: MIDAZOLAM HCL 5MG/ML 10ML VIAL 100 ML IV ONE (04:43)
[2020-05-20] MEDS ORDERED: SODIUM CHLORIDE 0.9% 1000ML 1,000 ML ONE (05:18)
[2020-05-20 05:51] LABS: ABG HCO3 9 mmol/L (22-26); ABG PCO2 30 mmHg (35-45); ABG PO2 49 mmHg (80-105); ABG TCO2 10
[2020-05-20] MEDS ORDERED: ALBUMIN 25% 12.5GM 50ML 200 ML IV ONE (06:01)
[2020-05-20 06:14] LABS: BASOPHILS % 0.6 % (0.0-1.0); HEMATOCRIT 30.2 % (34.2-44.1); LYMPHOCYTES # (AUTO) 0.5 (1.0-3.2); LYMPHOCYTES % 30.3 % (18.0-39.1); MEAN CORPUSCULAR HEMOGLOBIN 26.6 pg (28-32); MEAN CORPUSCULAR HGB CONC 29.8 g/dL (31-35); MEAN CORPUSCULAR VOLUME 89.3 fL (81-99); MONOCYTES # (AUTO) 0.1 (0.2-0.8); MONOCYTES % 3.6 % (4.4-11.3); NEUTROPHILS # (AUTO) 1.1 (2.1-6.9); NEUTROPHILS % 63.7 % (38.7-80.0); PLATELET COUNT 124 x10e3/uL (140-360); RED BLOOD COUNT 3.38 x10e6/uL (3.6-5.1); RED CELL DISTRIBUTION WIDTH 18.2 % (11.7-14.4)
[2020-05-20] MEDS ORDERED: ALBUMIN 25% 25GM 100ML 0.25 GM/ML BTL IV NR (06:15)
[2020-05-20] MEDS ORDERED: SODIUM BICARBONATE 8.4% 150 ML in DEXTROSE 5% 1,000 ML IV SCH (06:15)
[2020-05-20] MEDS ORDERED: VASOPRESSIN 60 UNIT in DEXTROSE 5% 50ML 57 ML IV PRN (06:15)
[2020-05-20] MEDS ORDERED: SODIUM BICARBONATE 8.4% SYRING 50 ML ONE (06:22)
[2020-05-20] MEDS: VANCOMYCIN 1GM/NS 250 ML 250 ML IV SCH (06:45)
[2020-05-20 06:49] LABS: CREATININE, SERUM 1.46 mg/dL (0.57-1.11)
[2020-05-20 06:50] LABS: ALBUMIN 0.7 g/dL (3.5-5.0); ALBUMIN/GLOBULIN RATIO 0.3 (0.8-2.0)
[2020-05-20 06:52] LABS: CALCIUM 5.1 mg/dL (8.4-10.2)
[2020-05-20 07:09] LABS: AMYLASE 856 U/L (25-125); LIPASE 631 U/L (8-78)
[2020-05-20] MEDS ORDERED: ALBUMIN 25% 25GM 100ML 0.25 GM/ML BTL IV ONE (07:15)
[2020-05-20] MEDS: ONDANSETRON HCL INJ 2MG/ML 2ML 2 MG/ML VIAL IV SCH ×2 (07:30→11:30)
[2020-05-20] MEDS ORDERED: SODIUM BICARBONATE 8.4% INJ 50 ML SYR IV NR ×2 (07:30→08:00)
[2020-05-20] MEDS ORDERED: CALCIUM GLUCONATE 10% INJ 9.3 MEQ in SODIUM CHLORIDE 0.9% 100 ML 100 ML IV ONE (08:00)
[2020-05-20 08:34] LABS: ABG HCO3 10 mmol/L (22-26); ABG PCO2 32 mmHg (35-45); ABG PH 7.08 (7.35-7.45); ABG PO2 57 mmHg (80-105); ABG TCO2 11
[2020-05-20] MEDS ORDERED: FILGRASTIM 300 MCG/ML VIAL SC NR (08:45)
[2020-05-20] MEDS ORDERED: ALBUMIN 5% 0.05 GM/ML BTL IV ONE (08:45)
[2020-05-20] MEDS ORDERED: PHENYLEPHRINE 10MG/ML VIAL 40 MG in DEXTROSE 5% 250ML 250 ML IV SCH (08:45)
[2020-05-20] MEDS: DICYCLOMINE HCL 10 MG CAP PO SCH (09:00)
[2020-05-20] MEDS ORDERED: BROMOCRIPTINE 2.5 MG PO SCH (09:00)
[2020-05-20] MEDS: IRON SUCROSE 100 MG in SODIUM CHLORIDE 0.9% 100 ML 100 ML IV SCH (09:28)
[2020-05-20] MEDS: PANTOPRAZOLE 40 MG 10ML VIAL IV SCH (09:32)
[2020-05-20 10:23] LABS: ELLIPTOCYTE, RBC SLIGHT; HYPOCHROMASIA MODE; LYMPHOCYTES % (MANUAL) 24 % (19-48); MONOCYTES % (MANUAL) 6 % (3.4-9.0); NEUTROPHILS % (MANUAL) 70 % (40-74); POLYCHROMASIA FEW; RBC MORPHOLOGY COMMENT ABNORMAL
[2020-05-20 10:24] LABS: PLATELET ESTIMATE SLIGHTLY DECREASED; PLATELET MORPHOLOGY COMMENT FEW LARGE
[2020-05-20] MEDS ORDERED: MIDAZOLAM HCL 2 MG/2 ML VIAL INJ ONE (12:22)
[2020-05-20] MEDS ORDERED: ETOMIDATE 40 MG/ 20ML VIAL IV ONE (12:22)
[2020-05-20] MEDS ORDERED: SUCCINYLCHOLINE 200 MG/10 ML SYR IV ONE (12:22)
== END 2020-05-20 12:23 | disposition short-term general hospital (02) | DRG 871 ==
LOC: ER 16:53 → ERHOLD 17:10 → ICU 20:25 → IMCU 05-12 15:31 → ICU 05-19 23:27
PROVIDERS: ADMIT Internal Medicine; ATTEND Internal Medicine
PROC: 30233N1 Transfusion of Nonautologous Red Blood Cells into Peripheral Vein, Percutaneous Approach (ICD-10-PCS; 2020-05-11)
PROC: 07DR3ZX Extraction of Iliac Bone Marrow, Percutaneous Approach, Diagnostic (ICD-10-PCS; principal; 2020-05-12)
PROC: 009U3ZX Drainage of Spinal Canal, Percutaneous Approach, Diagnostic (ICD-10-PCS; 2020-05-19)
DX: A41.51 Sepsis due to Escherichia coli [E. coli] (principal); R65.21 Severe sepsis with septic shock; J96.01 Acute respiratory failure with hypoxia; K85.90 Acute pancreatitis without necrosis or infection, unspecified; E43 Unspecified severe protein-calorie malnutrition; N17.9 Acute kidney failure, unspecified; E87.2 Acidosis; D68.59 Other primary thrombophilia; E87.0 Hyperosmolality and hypernatremia; D61.818 Other pancytopenia; N39.0 Urinary tract infection, site not specified; L03.116 Cellulitis of left lower limb; R18.8 Other ascites; D69.6 Thrombocytopenia, unspecified; R63.4 Abnormal weight loss; Z68.22 Body mass index [BMI] 22.0-22.9, adult; R74.01 Elevation of levels of liver transaminase levels; E87.5 Hyperkalemia; E86.0 Dehydration; B96.20 Unspecified Escherichia coli [E. coli] as the cause of diseases classified elsewhere; Z74.09 Other reduced mobility; E83.51 Hypocalcemia; E83.41 Hypermagnesemia; R62.7 Adult failure to thrive; M21.372 Foot drop, left foot; M21.371 Foot drop, right foot; G62.9 Polyneuropathy, unspecified; M32.9 Systemic lupus erythematosus, unspecified; D50.0 Iron deficiency anemia secondary to blood loss (chronic); M32.19 Other organ or system involvement in systemic lupus erythematosus; Z11.59 Encounter for screening for other viral diseases; K72.90 Hepatic failure, unspecified without coma; T68.XXXA Hypothermia, initial encounter; K81.1 Chronic cholecystitis; D63.8 Anemia in other chronic diseases classified elsewhere
CPT/HCPCS: 31500; 36415; 36600; 38222; 62328; 70450; 70553; 71045; 74018; 74019; 74176; 74183; 74470; 76705; 76882; 77012; 78227; 80048; 80053; 80061; 80307; 81001; 81050; 82140; 82150; 82306; 82550; 82553; 82575; 82607; 82728; 82746; 82805; 82945; 83036; 83516; 83518; 83519; 83540; 83605; 83615; 83690; 83735; 83874; 83880; 83970; 84100; 84146; 84156; 84157; 84166; 84436; 84443; 84466; 84479; 84484; 84702; 85025; 85045; 85597; 85610; 85613; 85651; 85730; 86039; 86140; 86160; 86225; 86235; 86255; 86256; 86335; 86376; 86431; 86850; 86900; 86920; 87040; 87070; 87071; 87086; 87186; 87205; 87390; 87400; 88184; 89051; 93005; 93925; 93970; 94002; 94003; 95812; 97139; 99152; 99153; 99251; 99284; A9537; G0433; G0435; J0610; J1200; J1442; J1756; J2001; J2250; J2370; J2405; J2543; J2765; J2930; J3010; J3360; J3370; J3430; J3486; J7030; J7040; J7050; J7070; J7121; P9016; P9034; P9045; P9047; Q9967; U0002